=== PATIENT | female | born 1960 | race Caucasian/White ===

== ENCOUNTER → 2023-05-25 06:44 | Outpatient (REF) | payer OTHER, SELFPAY | LOC: WDC 06:44 | PROVIDERS: ATTENDING PHYSICIAN Obstetrics & Gynecology Gynecology; FAMILY PHYSICIAN Family Medicine | DX: Z12.31 Encounter for screening mammogram for malignant neoplasm of breast (principal) | CPT/HCPCS: 77063; 77067 ==

== ENCOUNTER → 2023-11-30 07:41 | Outpatient (REF) | payer MEDICARE, SELFPAY | LOC: WDC 07:41 | PROVIDERS: ATTENDING PHYSICIAN Obstetrics & Gynecology Gynecology; FAMILY PHYSICIAN Family Medicine | DX: R92.2 Inconclusive mammogram (principal) | CPT/HCPCS: 76641 ==

== ENCOUNTER 2024-02-24 16:44 | Emergency (ER) | payer MEDICARE, SELFPAY ==
[2024-02-24 17:01] VITALS: BP 146/80
--- NOTE | 2024-02-24 17:03 | ED.GENMED ---
ED Provider Triage
<Peter Andres PA-C - Last Filed: 02/24/24 17:05>
-
Patient seen by provider in Triage?: Seen in Triage
63 yo female presents with R popliteal pain and calf swelling x 3 days. Worsening. No CP/SOB. No leg paresthesias.
Visible edema noted through pants. Hx of prior R TKA. Check venous doppler
History of Present Illness
<Peter Andres PA-C - Last Filed: 02/24/24 17:05>
General
Chief Complaint: DVT/Possible Blood Clot
Time Seen by Provider: 02/24/24 19:50
<Du Schwab MD - Last Filed: 02/24/24 20:03>
General
Source: patient
Exam Limitations: none
History of Present Illness
History of Present Illness:
63-year-old female 1 week of progressive pain behind the right calf. No fever chills no chest pain shortness of breath no other complaints. Patient is trying to exercise more frequently.
Past History
<Du Schwab MD - Last Filed: 02/24/24 20:03>
Past History
ED Past Medical History: HTN and Hypercholesterolemia
ED Past Surgical History: Cholecystectomy, Gynecological, Orthopedic and Other (Left ear cholesteatoma)
Phy Exam
<Du Schwab MD - Last Filed: 02/24/24 20:03>
Physical Exam
Physical Exam:
GENERAL: Alert and oriented in no apparent distress
CARDIAC: Regular rate and rhythm
LUNGS: No respiratory distress
NEUROLOGICAL: Alert and oriented , grossly non-focal
SKIN: Warm and dry, no rash or lesion, no discoloration, skin intact.
MUSCULOSKELETAL: Mild diffuse swelling of the right calf. However no point tenderness. No cord. No significant varicosities. Good distal pulses and color. Old vertical scar to the right anterior knee. No pain with knee motion. No large
ballottement or effusion. Mild tenderness to the proximal posterior calf. No warmth
PSYCH: Normal and appropriate interaction.
Course
<Peter Andres PA-C - Last Filed: 02/24/24 17:05>
Orders/Labs/Results
Orders:
Orders
02/24/24 17:03
Venous Doppler Lwr Ext Rt [US Periph Venous LOWER Ext RT] Urgent
Comment:
Reason For Exam: R calf pain/edema
Vital Signs
Initial and Last Documented VS:
Initial Vital Signs
Temp Pulse Resp BP Pulse Ox
98.3 F 99 18 146/80 99
02/24/24 17:01 02/24/24 17:01 02/24/24 17:01 02/24/24 17:01 02/24/24 17:01
Last Documented Vital Signs
Temp Pulse Resp BP Pulse Ox
98.3 F 99 18 146/80 99
02/24/24 17:01 02/24/24 17:01 02/24/24 17:01 02/24/24 17:01 02/24/24 17:01
<Du Schwab MD - Last Filed: 02/24/24 20:03>
Orders/Labs/Results
Orders:
Orders
02/24/24 17:03
Venous Doppler Lwr Ext Rt [US Perip Venous LOWER Ext RT] Urgent
Comment:
Reason For Exam: R calf pain/edema
Vital Signs
Initial and Last Documented VS:
Initial Vital Signs
Temp Pulse Resp BP Pulse Ox
98.3 F 99 18 146/80 99
02/24/24 17:01 02/24/24 17:01 02/24/24 17:01 02/24/24 17:01 02/24/24 17:01
Last Documented Vital Signs
Temp Pulse Resp BP Pulse Ox
98.3 F 99 18 146/80 99
02/24/24 17:01 02/24/24 17:01 02/24/24 17:01 02/24/24 17:01 02/24/24 17:01
<Du Schwab MD - Last Filed: 02/24/24 20:03>
MDM/Problems Addressed
Differential Diagnosis Includes:
Ultrasound shows a fluid collection likely complex Kelley's cyst. Not describing any infectious issues. There is no warmth there is no erythema there is no obvious fluctuance. Conservative management and orthopedic follow-up. Discussed with the
patient
<Du Schwab MD - Last Filed: 02/24/24 20:03>
*Critical Care Note
Total Time (30-74mins, 75-104mins- exclusive of procedures): Not Applicable
ED Attending Note
<Peter Andres PA-C - Last Filed: 02/24/24 17:05>
-
Portions of this chart may have been created with voice recognition software.� Occasional wrong word or��sound alike� substitutions may have occurred due to the inherent limitations of voice recognition software.
Discharge Plan
Departure
Patient Disposition: Home (Routine Discharge)
Date of Disposition: 02/24/24
Time of Disposition: 20:02
Patient with high blood pressure during this ER visit?: Yes
Discharge Problem:
Right leg swelling, Complex Kelley's cyst
Instructions: Kelley's Cyst (DC), BLOOD PRESSURE
Prescriptions:
No Action
losartan 50 MG tablet
50 mg PO QPM
acetaminophen [Tylenol Extra Strength] 500 MG tablet
1,000 mg PO PRN PRN (Reason: pain)
azelastine 1 SPRAY aerosol,spray
1 spray intranasal PRN PRN (Reason: allergies)
vitamin B complex [Neurodep] 1 CAP capsule
1 cap PO QPM
rosuvastatin 5 MG tablet
5 mg PO QPM
cholecalciferol (vitamin D3) 1,000 UNITS tablet
5,000 units PO QPM
lorazepam 0.5 MG tablet
0.5 mg PO HSPRN PRN (Reason: sleep)
ibuprofen 200 MG tablet
600 mg PO QIDPRN PRN (Reason: pain) Qty: 1 0RF
hydrocodone-acetaminophen 1 TABLET tablet
1 - 2 tab PO Q4HPRN PRN (Reason: pain) Qty: 10 0RF
ciprofloxacin HCl [Ciloxan] 0.3 % drops
4 drops LEFT EAR BID 7 Days Qty: 1 2RF
cephalexin 500 MG capsule
500 mg PO TID 2 Days Qty: 6 0RF
Referrals:
Suzanna Garcia MD [Family Provider] -
Activity Restrictions/Additional Instructions:
Call your orthopedist Tuesday for close follow-up
Rest elevate the leg
Advil or Motrin for pain
Return sooner with increased pain increased swelling redness warmth chest pain shortness of breath or any other unusual symptoms.
Repeat ultrasound in 7 to 10 days with persistent symptoms
Interventions
Interventions:
*Risk Screen - Suicide Last Done: 02/24/24 17:03
*General Assessment Last Done: 02/24/24 17:03
*Neglect/Abuse Screening Last Done: 02/24/24 17:03
*ED COVID-19 Vaccine History Last Done: 02/24/24 17:03
Discharge Date and Time
Print Language: MAURITANIAN
[2024-02-24 20:09] VITALS: BP 145/83
== END 2024-02-24 20:11 | disposition home or self-care (01) ==
LOC: EMR 16:44
PROVIDERS: EMERGENCY PHYSICIAN Emergency Medicine; FAMILY PHYSICIAN Family Medicine
DX: M71.21 Synovial cyst of popliteal space [Baker], right knee (principal); R22.41 Localized swelling, mass and lump, right lower limb; I10 Essential (primary) hypertension; E78.00 Pure hypercholesterolemia, unspecified
CPT/HCPCS: 99284; 93971

== ENCOUNTER → 2024-03-02 11:58 | Outpatient (REF) | payer MEDICARE, SELFPAY ==
[2024-03-02 12:59] LABS: % Basophils 0.9 % (0-2); % Eosinophils 1.6 % (0-6); % Immature Granulocytes 0.7 % (0-0.5); % Lymphocytes 29.5 % (20.5-51.1); % Monocytes 10.6 % (1.7-9.3); % Neutrophils 56.7 % (42.2-75.2); Absolute Basophils 0.1 10^3/uL (0-0.2); Absolute Eosinophils 0.1 10^3/uL (0-0.7); Absolute Immature Granulocytes 0.1 10^3/uL (0-0.05); Absolute Lymphocytes 2.1 10^3/uL (1.2-3.4); Absolute Monocytes 0.7 10^3/uL (0.1-0.6); Absolute Neutrophils 3.9 10^3/uL (1.4-6.5); Hematocrit 40.4 % (37.0-47.0); Hemoglobin 13.2 g/dL (12.0-16.0); Mean Corp Hgb Conc. 32.7 g/dL (33.0-37.0); Mean Corpuscular Hgb 28.5 pg (27.0-31.0); Mean Corpuscular Volume 87.3 fL (81.0-99.0); Mean Platelet Volume 10.1 fL (7.4-10.4); Nucleated Red Blood Cells % 0 %; Platelet Count 259 10^3/uL (130-400); Red Blood Cell Count 4.63 10^6/uL (4.20-5.40); Red Cell Dist. Width 12.7 % (11.5-14.5)
[2024-03-02 13:16] LABS: C-Reactive Protein < 5.00 mg/L (0.0-10.00)
[2024-03-02 14:38] LABS: Erythrocyte Sed Rate 22 mm/hour (0-20)
== END ==
LOC: REG 11:58
PROVIDERS: ATTENDING PHYSICIAN Physician Assistant Surgical; FAMILY PHYSICIAN Family Medicine
DX: T84.012S Broken internal right knee prosthesis, sequela (principal); M25.561 Pain in right knee
CPT/HCPCS: 36415; 85025; 85652; 86140

== ENCOUNTER → 2024-03-07 10:13 | Outpatient (REF) | payer MEDICARE, SELFPAY | LOC: RAD 10:13 | PROVIDERS: ATTENDING PHYSICIAN Physician Assistant Surgical; FAMILY PHYSICIAN Family Medicine | DX: T84.012S Broken internal right knee prosthesis, sequela (principal); M25.561 Pain in right knee | CPT/HCPCS: 78315; A9503 ==

== ENCOUNTER → 2024-05-30 06:38 | Outpatient (REF) | payer MEDICARE, SELFPAY | LOC: WDC 06:38 | PROVIDERS: ATTENDING PHYSICIAN Obstetrics & Gynecology Gynecology; FAMILY PHYSICIAN Family Medicine | DX: Z12.31 Encounter for screening mammogram for malignant neoplasm of breast (principal) | CPT/HCPCS: 77063; 77067 ==

== ENCOUNTER → 2024-11-20 07:40 | Outpatient (REF) | payer MEDICARE, SELFPAY | LOC: WDC 07:40 | PROVIDERS: ATTENDING PHYSICIAN Obstetrics & Gynecology Gynecology; FAMILY PHYSICIAN Family Medicine | DX: Z85.3 Personal history of malignant neoplasm of breast (principal) | CPT/HCPCS: 76641 ==